=== PATIENT | female | born 1945 | race Caucasian/White ===

== ENCOUNTER 2016-07-07 12:21 | Emergency (ER) | payer BC ==
[2016-07-07 14:08] VITALS: BP 154/96
--- NOTE | 2016-07-07 14:30 | UC ---
Neck Pain HPI - HPI Summary HPI Summary: right posterior neck pain for about 3 months---had a swollen lymph node and rx' d 3 times with antibiotic---seems to go away a little but swelling and pain returns, no fevers, chills, night sweats, or weight loss - History of Current Complaint Chief Complaint: UCGeneralIllness Stated Complaint: NECK PAIN Time Seen by Provider: 07/07/16 14:12 Hx Obtained From: Patient ?: No Onset/Duration Of Injury/Symptoms: Months - 3 Mechanism Of Injury: No Known Trauma Timing: Intermittent Episodes Onset/Duration: Still Present Severity: Moderate Pain Intensity: 6 Pain Scale Used: 0-10 Numeric Location: Discrete At: - right posterior neck Character: Stiff, Spasmotic Aggravating Factors: Nothing Alleviating Factors: Nothing Associated Signs & Symptoms: Positive: Swelling - lymph tissue - Allergies/Home Medications Allergies/Adverse Reactions: Allergies Allergy/AdvReac Type Severity Reaction Status Date / Time Aspirin Allergy Severe Wheezing Verified 07/01/13 12:14 PMH/Surg Hx/FS Hx/Imm Hx Previously Healthy: No Respiratory History Of: Reports: Asthma - Surgical History Surgical History: Yes Surgery Procedure, Year, and Place: cataract; implanted lens - Family History Known Family History: Positive: Cardiac Disease Family History: family history positive for COPD, asthma, - Social History Occupation: Retired Lives: With Family Alcohol Use: None Substance Use Type: None Smoking Status (MU): Never Smoked Tobacco - Immunization History Most Recent Influenza Vaccination: fall 2015 Review Of Systems Constitutional: Positive: Negative Skin: Positive: Negative Eyes: Positive: Negative ENT: Positive: Negative, Other - swollen posterior right lymphtissues--one node palpated---tender to touch Respiratory: Positive: Negative Cardiovascular: Positive: Negative Gastrointestinal: Positive: Negative Genitourinary: Positive: Negative Musculoskeletal: Positive: Negative Neurological: Positive: Negative Psychological: Positive: Negative All Other Systems Reviewed And Are Negative: Yes Physical Exam Triage Information Reviewed: Yes Appearance: Well-Appearing, No Pain Distress, Well-Nourished Vital Signs: Initial Vital Signs Temp 97.5 F 07/07/16 14:03 Pulse 75 07/07/16 14:03 Resp 18 07/07/16 14:03 BP 154/96 07/07/16 14:03 Pulse Ox 100 07/07/16 14:03 Vital Signs Reviewed: Yes Eye Exam: Normal Eyes: Positive: Conjunctiva Clear ENT Exam: Normal ENT: Positive: Normal ENT inspection, Hearing grossly normal, Pharynx normal, TMs normal. Negative: Nasal congestion, Nasal drainage, Tonsillar swelling, Tonsillar exudate, Trismus, Muffled/hoarse voice Dental Exam: Normal Neck exam: Normal Neck: Positive: Supple, Nontender, No Lymphadenopathy Respiratory Exam: Normal Respiratory: Positive: Chest non-tender, Lungs clear, Normal breath sounds, No respiratory distress Cardiovascular Exam: Normal Cardiovascular: Positive: RRR, No Murmur, Pulses Normal, Brisk Capillary Refill Musculoskeletal Exam: Normal Musculoskeletal: Positive: Strength Intact, ROM Intact, No Edema Neurological Exam: Normal Neurological: Positive: Alert, Muscle Tone Normal Psychological Exam: Normal Skin Exam: Normal Neck Pain Course/Dx - Course Course Of Treatment: labs and follow with surgeon and PCP this week or early next week - Differential Dx/Diagnosis Differential Dx/HQI/PQRI: Neoplasm, Sprain, Strain Provider Diagnoses: LYmphadenopathy right posterior cervical Discharge - Discharge Plan Condition: Stable Disposition: HOME Patient Education Materials: Acetaminophen (By mouth), Lymphadenopathy (ED) Referrals: Todd Mar MD [Primary Care Provider] - Omid Antony MD [Medical Doctor] - As Soon As Possible
[2016-07-07 19:07] LABS: Hematocrit 41 % (35-47); Hemoglobin 13.6 g/dl (12.0-16.0); Mean Corpuscular HGB Conc 33 g/dl (31-36); Mean Corpuscular Hemoglobin 29 pg (27-31); Mean Corpuscular Volume 88 fL (80-97); Mean Platelet Volume 8 um3 (7.4-10.4); Red Cell Distribution Width 13 % (10.5-15); White Blood Count 10.9 10^3/ul (3.5-10.8)
[2016-07-07 19:09] LABS: Add Diff/Slide Review? Slide Review Added; Comments Flag Yes
== END 2016-07-07 14:40 | disposition home or self-care (01) ==
LOC: UCEAST 12:21
DX: R59.1 Generalized enlarged lymph nodes (principal); Z88.6 Allergy status to analgesic agent
CPT/HCPCS: 36415; 85025; 99211; G0463